=== PATIENT | female | born 1990 | race Caucasian/White ===

== ENCOUNTER 2020-11-01 18:57 | Emergency (ER) | payer OTHER ==
[~2020-11-01] VITALS: Ht 165.1 cm; Wt 107.0 kg
[2020-11-01 19:00] VITALS: BP 165/97
== END 2020-11-01 19:42 | disposition home or self-care (01) ==
LOC: ED 19:27
DX: J02.8 Acute pharyngitis due to other specified organisms (principal); B97.89 Other viral agents as the cause of diseases classified elsewhere; R05 Cough
CPT/HCPCS: 99283; J7512